=== PATIENT | female | born 1995 | race Caucasian/White ===

== ENCOUNTER 2017-11-17 11:57 | Emergency (ER) | payer MEDICAID ==
[~2017-11-17] VITALS: Ht 160 cm; Wt 49.0 kg
[~2017-11-17 11:57] MED LIST: CIPR-259 PO; ZOF4T PO
[2017-11-17] MEDS ORDERED: mupirocin 2% ointment 22GM TP STA (13:19)
[2017-11-17 14:19] VITALS: BP 109/78
== END 2017-11-17 14:15 | disposition home or self-care (01) ==
LOC: ER 11:59
DX: L73.9 Follicular disorder, unspecified (principal); J45.909 Unspecified asthma, uncomplicated; F12.90 Cannabis use, unspecified, uncomplicated; Z88.1 Allergy status to other antibiotic agents
CPT/HCPCS: 99282; 99283

== ENCOUNTER → 2018-03-21 | Emergency (ER) | payer MEDICAID ==
[~2018-03-21] VITALS: Ht 160 cm; Wt 48.5 kg
[~2018-03-21] MED LIST changes: +DOXY100C43 PO
[2018-03-21 15:01] VITALS: BP 112/90
== END | disposition home or self-care (01) ==
LOC: ER 14:53
DX: L03.115 Cellulitis of right lower limb (principal); J45.909 Unspecified asthma, uncomplicated; F12.10 Cannabis abuse, uncomplicated; Z86.14 Personal history of Methicillin resistant Staphylococcus aureus infection; Z88.1 Allergy status to other antibiotic agents
CPT/HCPCS: 99283

== ENCOUNTER 2018-05-25 15:46 | Emergency (ER) | payer MEDICAID ==
[~2018-05-25] VITALS: Ht 558.9 cm; Wt 56.8 kg
[~2018-05-25 15:46] MED LIST changes: -DOXY100C43 PO
[2018-05-25 16:54] LABS: BASOPHILS % (AUTO) 0 % (0-1); EOSINOPHILS # (AUTO) 0.2 X10'3 (0-0.9); HEMATOCRIT 45.5 % (35.0-45.0); HEMOGLOBIN 15.4 g/dl (12.0-16.0); LYMPHOCYTES # (AUTO) 1.2 X10'3 (1.1-4.8); LYMPHOCYTES % (AUTO) 8.1 % (21-51); MEAN CORPUSCULAR HEMOGLOBIN 31.7 PG (27.0-31.0); MEAN CORPUSCULAR HGB CONC 33.9 % (33.0-36.5); MEAN CORPUSCULAR VOLUME 93.5 FL (78-98); MEAN PLATELET VOLUME 8.4 FL (7.4-10.4); MONOCYTES # (AUTO) 0.4 X10'3 (0-0.9); MONOCYTES % (AUTO) 3.1 % (2-12); NEUTROPHILS # (AUTO) 12.8 X10'3 (1.8-7.7); NEUTROPHILS % (AUTO) 87.8 % (42-75); PLATELET COUNT 241 X10'3 (140-440); RED BLOOD COUNT 4.86 X10'6 (4.20-5.60); RED CELL DISTRIBUTION WIDTH 13.2 % (11.5-14.5); WHITE BLOOD COUNT 14.6 X10'3 (4.5-11.0)
[2018-05-25 16:55] LABS: CLARITY,URINE CLOUDY (Clear); COLOR,URINE YELLOW (Yellow); GLUCOSE, URINE NEGATIVE (Neg); KETONES,URINE NEGATIVE (Neg); LEUKOCYTE ESTERASE ,URINE SMALL (Neg); NITRITES, URINE POSITIVE (Neg); OCCULT BLOOD,URINE TRACE-INTACT (Neg); PH,URINE 7.5 (4.8-8.0); PROTEIN,URINE NEGATIVE (Neg); UROBILINOGEN,URINE 0.2 E.U/dL (0.2-1.0)
[2018-05-25 16:57] LABS: UA COLLECTION TYPE CLN CATCH MIDSTREAM
[2018-05-25 17:02] LABS: BACTERIA,URINE 3+ /HPF (Neg); MUCUS STRANDS NONE SEEN /LPF (Neg); SQUAMOUS EPITHELIAL CELL,UR MODERATE /LPF (FEW); WBC,URINE 30-50 /HPF (0-4)
[2018-05-25] MEDS ORDERED: normal saline 1000ML IV soln IVB ONE (17:20)
[2018-05-25 17:22] LABS: ALANINE AMINOTRANSFERASE 19 U/L (12-78); ALBUMIN 3.8 G/DL (3.4-5.0); ALKALINE PHOSPHATASE 149 IU/L (46-116); ANION GAP 9 (8-16); ASPARTATE AMINO TRANSFERASE 18 U/L (10-37); BILIRUBIN,TOTAL 1.6 MG/DL (0.1-1.0); BLOOD UREA NITROGEN 13 MG/DL (7-18); BUN/CREATININE RATIO 15.7 (6.6-38.0); CALCIUM 8.9 MG/DL (8.5-10.1); CHLORIDE 103 MMOL/L (99-107); CREATININE 0.83 MG/DL (0.40-0.90); GLUCOSE 91 MG/DL (70-104); POTASSIUM 4.1 MMOL/L (3.5-5.1); SODIUM 141 MMOL/L (135-145); TOTAL PROTEIN 7.8 G/DL (6.4-8.2); eGFR 86 ML/MIN
[2018-05-25 17:25] VITALS: BP 109/75
[2018-05-25 17:58] LABS: URINE HCG NEGATIVE (NEG)
[2018-05-25] MEDS ORDERED: CIPR-230 PO (19:26)
== END 2018-05-25 19:35 | disposition home or self-care (01) ==
LOC: ER 15:47
DX: N10 Acute pyelonephritis (principal); F17.200 Nicotine dependence, unspecified, uncomplicated; F12.10 Cannabis abuse, uncomplicated; Z88.1 Allergy status to other antibiotic agents
CPT/HCPCS: 36415; 80053; 81001; 81025; 85025; 85610; 87077; 87088; 87186; 96360; 99284; J7030

== ENCOUNTER 2020-02-16 00:08 | Emergency (ER) | payer MEDICAID ==
[~2020-02-16] VITALS: Ht 160 cm; Wt 54.0 kg
[2020-02-16 00:13] VITALS: BP 151/87
[2020-02-16] MEDS ORDERED: diphenhydrAMINE 50 mg/ml inj IV ONE (00:30)
[2020-02-16] MEDS ORDERED: normal saline 1000ML IV soln IVB ONE (00:30)
[2020-02-16] MEDS ORDERED: ketorolac trometh. 30mg/ml inj. IV ONE (00:30)
[2020-02-16] MEDS ORDERED: metoclopramide 5 mg/ml inj IV ONE (00:30)
--- NOTE | 2020-02-16 01:11 | NUR ---
RELIEVING RN FOR BREAK, PT IS RESTING QUIETLY IN DARK ROOM, GAVE PT WARM BLANKET, LITER NS INFUSING W/O, FRIEND AT BEDSIDE
== END 2020-02-16 02:54 | disposition home or self-care (01) ==
LOC: ER 00:08
DX: G43.909 Migraine, unspecified, not intractable, without status migrainosus (principal); J45.909 Unspecified asthma, uncomplicated; R11.2 Nausea with vomiting, unspecified; F12.90 Cannabis use, unspecified, uncomplicated; F15.90 Other stimulant use, unspecified, uncomplicated; Z86.14 Personal history of Methicillin resistant Staphylococcus aureus infection; Z72.89 Other problems related to lifestyle; Z88.8 Allergy status to other drugs, medicaments and biological substances; Z79.2 Long term (current) use of antibiotics; Z79.899 Other long term (current) drug therapy
CPT/HCPCS: 96361; 96374; 96375; 99284; J1200; J1885; J2765; J7030

== ENCOUNTER 2021-05-09 11:14 | Emergency (ER) | payer MEDICAID ==
[~2021-05-09] VITALS: Ht 160 cm; Wt 52.1 kg
[2021-05-09 11:47] VITALS: BP 106/69
== END 2021-05-09 12:18 | disposition home or self-care (01) ==
LOC: ER 11:15
DX: Z02.89 Encounter for other administrative examinations (principal); R11.0 Nausea; J45.909 Unspecified asthma, uncomplicated; F12.90 Cannabis use, unspecified, uncomplicated; F15.90 Other stimulant use, unspecified, uncomplicated; Z87.440 Personal history of urinary (tract) infections; Z86.14 Personal history of Methicillin resistant Staphylococcus aureus infection; Z72.89 Other problems related to lifestyle; Z88.1 Allergy status to other antibiotic agents; Z79.2 Long term (current) use of antibiotics; Z79.899 Other long term (current) drug therapy
CPT/HCPCS: 99281